=== PATIENT | male | born 1960 | race Caucasian/White ===

== ENCOUNTER 2018-08-05 09:03 | Outpatient (REF) | payer MEDICAID, SELFPAY ==
[2018-08-05 19:33] LABS: Anion Gap 8.6 mmol/L (3-11); BUN 16 mg/dL (7-18); CO2 27.4 mmol/L (21.0-32.0); CREATININE 0.92 mg/dL (0.70-1.30); Chloride 102 mmol/L (98-107); Glucose 204 mg/dL (70-100); Potassium 4.4 mmol/L (3.5-5.1); Sodium 138 mmol/L (136-145)
== END 2018-08-05 09:23 ==
LOC: NCHCN 09:03
PROVIDERS: PCP Physician Assistant Medical; Visit Provider Physician Assistant Medical
DX: E11.9 Type 2 diabetes mellitus without complications (principal); I10 Essential (primary) hypertension
CPT/HCPCS: 80048

== ENCOUNTER 2018-11-18 07:17 | Day surgery (SDC) | payer MEDICAID, SELFPAY ==
--- NOTE | 2018-11-18 06:26 | HPE_ITS ---
Date of service: 11/18/18 Assessment and Plan (1) Encounter for screening colonoscopy: Current visit: No Status: Acute A\\ Colon Cancer screening. His last colonoscopy 10 years ago was normal. P\\ Colonoscopy under sedation Risks, benefits and complications have been reviewed. Complications include but are not limited to bleeding, pain, perforation, missed small lesion/polyp, sore throat, aspiration and adverse reaction to the medications. Questions were entertained and answered to their satisfaction and they wished to proceed. No guarantees were given or implied. History of Present Illness Narrative: Mr. Conway is a pleasant 58-year-old male who was seen in the office for another colonoscopy. He had a screening colonoscopy approximately 10 years ago which was normal. He does have a family history of colon cancer, but not in a first-degree relative. He denies any changes in bowel habits, weight loss, abdominal pain, melena or hematochezia. Patient has a past medical history significant for type 2 diabetes. His last hemoglobin A1c was 7.5. He also has hypertension for which she was recently started on lisinopril. He denies any chest pain or palpitations. He is able to walk up a couple of flights of stairs without difficulty. He does not have a history of MIs or strokes. He is a former smoker. He has a 51-[id number]-[id number] history. He stopped smoking in 1991. He drinks 1-2 beers a night. he is here for his colonoscopy today. He has had no changes in his medical history since he was seen in the office. Review of Systems Cardiovascular Reports chest pain, Reports chest pain at rest, Reports dyspnea and Reports dyspnea on exertion Respiratory Reports dyspnea and Reports dyspnea on exertion Gastrointestinal Reports as per [facility] Medical History Hypertension (Chronic) Type 2 diabetes mellitus (Chronic) Surgical History S/P cataract extraction (Acute ~1996) S/P colonoscopy (Acute) 2008-normal S/P tonsillectomy (Acute ~1963) S/P vasectomy (Acute ~1994) Family History Other Colon cancer Social History Smoking/Tobacco Use Status: Former Tobacco Use Quit Date: 03/25/95 Alcohol Intake: current Alcohol Intake frequency: a few times a week Alcohol type: beer Drug use: Never Household members: spouse Housing: house Do you feel safe at home: Yes Do you feel safe in your relationship?: Yes Meds Home Medications Medication Instructions Recorded Confirmed Type atorvastatin 20 mg tablet 20 mg PO QHS 09/02/18 11/13/18 History glipizide 5 mg tablet, extended 5 mg PO DAILY 09/02/18 11/13/18 History release 24 hr lisinopril 5 mg tablet 5 mg PO DAILY 09/02/18 11/13/18 History sildenafil 50 mg tablet 50 mg PO DAILY PRN 09/02/18 11/13/18 History bisacodyl 5 mg tablet,delayed 5 mg PO ONCE #4 tab 09/23/18 09/23/18 Rx release polyethylene glycol 3350 17 gram 255 g PO DAILY #15 each 09/23/18 09/23/18 Rx oral powder packet Allergies Allergy/AdvReac Type Severity Reaction Status Date / Time No Known Allergies Allergy Verified 09/23/18 14:09 Exam [facility] Head: normocephalic and atraumatic Resp Effort & Inspection: normal respiratory effort Auscultation: clear to auscultation bilaterally Cardio Rate: regular rate Rhythm: regular rhythm
--- NOTE | 2018-11-18 06:42 | W.COLOREPORT ---
Date of service: 11/18/18 Time of Service: : Colonoscopy Report Date of procedure: 11/18/18 Pre-op diagnosis general: Colon Cancer Screening Post-op diagnosis procedure note: other (polyps, diverticulosis) Procedure: Colonoscopy with polypectomy with cold forceps Surgeon: iBa Ramirez Anesthesia proc note operative: other (General/ ASA 2/Campbell Bonilla, ALICE) Estimated blood loss (mL): 3 Pathology: other (sigmoid bx at 30 cm, rectal polyp) Complications: None Disposition: same day Indications: Mr. Conway is a pleasant 58 year old male seen in the office for a follow up colonoscopy. His last colonoscopy was 10 years ago and was normal. Risks, benefits and complications have been reviewed. Complications include but are not limited to bleeding, pain, perforation, missed small lesion/polyp, sore throat, aspiration and adverse reaction to the medications. Questions were entertained and answered to their satisfaction and they wished to proceed. No guarantees were given or implied. Prep: Miralax/Dulcolax Procedure Start Time: : Procedure End Time: : Retraction Time: 25 minutes Findings: One rectal polyp Diverticulosis of the sigmoid colon ? lesion vs prolapsed mucosa at 30 cm- biopsies done Procedure Description: After informed consent was obtained the patient was taken to the procedure room and placed in a left decubitous position. Monitors were applied and a time out was done. The patients name, date of , procedure, allergies to medications and metal in their body was reviewed. The patient was then sedated. Once sedated and comfortable a rectal exam was done. External exam was normal. Internal exam revealed a normal sphincter tone and no palpable masses. The prostate smooth. The scope was then introduced and retro-flexed. No internal hemorrhoids were identified. The scope was then advanced to the cecum without difficulty. The TI and appendiceal orifice were identified. The prep was good. The scope was then slowly retracted over 25 minutes back into the rectum. Polyps were removed with cold forceps in the rectum. There was an area at 30 cm that was red and thickened but it didn't look like a polyp. The area was biopsied. The scope was removed and the patient was woken up and taken back to Same day surgery in stable condition. The patient tolerated the procedure well and there were no immediate complications. Follow up: The patient should follow up in 3-5 years unless they develop changes in bowel habits or other new gastrointestinal complaints.
--- NOTE | 2018-11-18 06:44 | W.PM.DSUDISC ---
Discharge Plan Disposition Patient Disposition: HOME Condition: Good Discharge Details Reason For Visit: Colon Cancer Screening Attending Provider: Bia Ramirez Primary Care Provider: Jovanny Hermosillo V Home Meds and New Rx's Prescriptions: Continued atorvastatin [Lipitor] 20 mg tablet 20 mg PO QHS RF: 0 glipizide 5 mg tablet extended release 24hr 5 mg PO DAILY RF: 0 sildenafil [Viagra] 50 mg tablet 50 mg PO DAILY PRNRF: 0 lisinopril 5 mg tablet 5 mg PO DAILY RF: 0 Discontinued bisacodyl [Dulcolax (bisacodyl)] 5 mg tablet,delayed release (DR/EC) 5 mg PO ONCE Qty: 4 RF: 0 polyethylene glycol 3350 17 gram powder in packet 255 g PO DAILY Qty: 15 RF: 0 Discharge Instructions Instructions: Colonoscopy (GEN), Diverticulosis (ED), Colorectal Polyps (GEN) Additional Instructions: Findings: 1 polyp Diverticulosis ? polyp vs inflammation. Biopsy done Follow up: depends on final pathology Please call if you develop: fevers >101.5 Nausea or Vomiting Abdominal pain that is not transient DAY SURGERY UNIT POST ENDOSCOPY INSTRUCTIONS 1. Because there will be medication in your system for the next 24 hours, you may feel a little sleepy. Your coordination will be affected. Therefore: a. Do not drive or operate dangerous equipment for 24 hours. b. Do not drink alcohol beverages for 24 hours (not even beer). c. Plan to go home and rest for the day. 2. Generally there are no restrictions on your activity after a day or so has gone by, but you may feel a bit fatigued for a few days. 3 After you arrive home you may have a light meal and return to a normal diet as you can tolerate it without feeling sick to your stomach. 4. After surgery, you may feel pain or discomfort. This should be only transient, but if it persists please contact your doctor. 5. If there are any questions regarding the findings of your procedure, please feel free to contact your doctor. 6. If you are unable to contact your doctor with a problem, contact the hospital at [phone]. 7. Continue all your regular medications unless directed otherwise. I understand the above instructions and have no questions. Signature of Patient or Responsible Adult Escort Date/Time Name of Responsible Adult Escort Signature of Nurse Date/Time Activity:: Activity as Tolerated Diet:: HIGH fIBER DIET Discharge Orders Discharge Orders: Discharge Order (Routine); Ordered 11/18/18 Ordered By: Bia Ramirez DS: Diagnosis Discharge Diagnosis (1) Encounter for screening colonoscopy: Status: Resolved (2) Colorectal polyp detected on colonoscopy: (3) Diverticulosis:
[2018-11-18 07:44] VITALS: BP 140/93; PULSE 78; RESP 18; TEMP 36.5; O2SAT 95
[2018-11-18] MEDS: Lactated Ringers 1,000 ML 80 ML IV (07:59)
--- NOTE | 2018-11-18 08:40 | BOWEL_PTH ---
PATIENT: Shaun Conway LOC: [facility] U#:[id number] AGE/SX: 58/M ROOM: RE11/18/[address]: Bia Ramirez MD : 1960 BED: DIS: 11/18/2018 SPEC #: [id number] RECD: 11/18/18 12:46 STATUS: JERMAINE REQ #: [id number] KANIKA: 11/18/18 08:[address]: Bia Ramirez DEPT: Surgical Specimen RECD BY: Florencia Barclay ENTERED: 11/18/18 12:47 SP TYPE: Bowel OTHR DR: Jovanny Hermosillo V Tissues: 1 - BIOPSY BOWEL 2 - BIOPSY BOWEL Procedures: GROSS AND MICRO LEVEL 4 Comments: [id number]
[2018-11-18 09:31] VITALS: BP 154/92; PULSE 74; RESP 16; TEMP 36.5; O2SAT 94
== END 2018-11-18 10:00 | disposition home or self-care (01) ==
LOC: SUR 07:17
PROVIDERS: PCP Physician Assistant Medical; Visit Provider Surgery
PROC: 0DJD8ZZ Inspection of Lower Intestinal Tract, Via Natural or Artificial Opening Endoscopic (ICD-10-PCS; CPT 45378; principal; 2018-11-18 08:15)
DX: Z12.11 Encounter for screening for malignant neoplasm of colon (principal); Z80.0 Family history of malignant neoplasm of digestive organs; K63.5 Polyp of colon; K62.1 Rectal polyp; E11.9 Type 2 diabetes mellitus without complications; I10 Essential (primary) hypertension; Z87.891 Personal history of nicotine dependence
CPT/HCPCS: 45380; 88305; NC; J2250; J3010

== ENCOUNTER 2019-12-15 10:25 | Outpatient (REF) | payer MEDICAID, SELFPAY ==
[2019-12-15 20:31] LABS: Abs Immature Grans 0.01 10^3/uL (0.0-0.06); Absolute Basophil Count 0.05 10^3/uL (0.0-0.2); Absolute Eosinophil Count 0.18 10^3/uL (0.0-0.7); Absolute Lymphocyte Count 2.02 10^3/uL (1.2-3.4); Absolute Monocyte Count 0.41 10^3/uL (0.1-0.8); Absolute Neutrophil Count 3.31 10^3/uL (1.2-6.7); Basophils % 0.8; HCT 49.7 % (40.0-50.0); Immature Grans % 0.2; Lymphocytes % 33.8; MCH 28.4 pg (27.0-33.0); MCHC 32.2 % (32.0-36.0); MCV 88.3 fL (80-95); MPV 11.3 fL (8.0-11.0); Monocytes % 6.9; Neutrophils % 55.3; Nucleated RBC 0 %; Platelet Count 243 10^3/uL (130-400); RBC 5.63 10^6/uL (4.36-5.78); RDW 12.8 % (11.8-14.1); RDW-SD 41.1 fL; WBC 5.98 10^3/uL (4.4-10.8)
[2019-12-15 20:52] LABS: ALT 49 U/L (16-63); AST 22 U/L (15-37); Albumin 3.9 g/dL (3.4-5.0); Alkaline Phosphatase 83 U/L (46-116); Anion Gap 6.4 mmol/L (3-11); BUN 15 mg/dL (7-18); Bilirubin, Total 0.9 mg/dL (0.2-1.0); CO2 32.6 mmol/L (21.0-32.0); CREATININE 0.85 mg/dL (0.70-1.30); Calcium 9.4 mg/dL (8.5-10.1); Calculated LDL 70 mg/dL (<100); Chloride 103 mmol/L (98-107); Cholesterol 143 mg/dL (<200); Glucose 138 mg/dL (74-106); HDL Cholesterol 62 mg/dL (40-60); Potassium 4.7 mmol/L (3.5-5.1); Sodium 142 mmol/L (136-145); Total Protein 7.4 g/dL (6.4-8.2); Triglyceride 57 mg/dL (<150)
[2019-12-15 20:54] LABS: COMMENT (LAB VIEW ONLY) 165.11 mg/dL; Microalb ug/mg Crea 6.2 ug/mg Cr
== END 2019-12-15 10:45 ==
LOC: NCHCN 10:25
PROVIDERS: PCP Physician Assistant Medical; Visit Provider Physician Assistant
DX: I10 Essential (primary) hypertension (principal); E11.9 Type 2 diabetes mellitus without complications
CPT/HCPCS: 80053; 80061; 82043; 82570; 85025

== ENCOUNTER 2020-07-12 02:03 | Outpatient (CLI) | payer MEDICAID, SELFPAY ==
[2020-07-12 08:44] VITALS: BP 137/76; PULSE 81; RESP 14; TEMP 37.4; O2SAT 94
[2020-07-12] MEDS: Normal Saline Flush 10 ML SYR IVP (09:32)
[2020-07-12] MEDS: Normal Saline 500 ML 30 ML IV (09:32)
[2020-07-12 09:42] VITALS: BP 138/75; PULSE 73; RESP 18; TEMP 36.8; O2SAT 93
[2020-07-12 10:18] VITALS: BP 121/73; PULSE 76; RESP 18; TEMP 36.6; O2SAT 91
[2020-07-12 10:50] VITALS: BP 127/76; PULSE 70; RESP 22; TEMP 36.8; O2SAT 93
[2020-07-12 11:12] VITALS: BP 125/72; PULSE 68; RESP 18; TEMP 36.6; O2SAT 92
== END 2020-07-12 02:04 | disposition home or self-care (01) ==
LOC: INF 02:04
PROVIDERS: PCP Physician Assistant Medical; Visit Provider Family Medicine
DX: U07.1 COVID-19 (principal)
CPT/HCPCS: 96365

== ENCOUNTER 2021-01-20 18:42 | Outpatient (REF) | payer MEDICAID, SELFPAY ==
[2021-01-20 18:56] LABS: Anion Gap 6.6 mmol/L (3-11); BUN 17 mg/dL (7-18); CO2 30.4 mmol/L (21.0-32.0); CREATININE 0.8 mg/dL (0.70-1.30); Calcium 9.4 mg/dL (8.5-10.1); Chloride 104 mmol/L (98-107); Glucose 99 mg/dL (74-106); Potassium 4.9 mmol/L (3.5-5.1); Sodium 141 mmol/L (136-145)
[2021-01-20 19:32] LABS: COMMENT (LAB VIEW ONLY) 128.19 mg/dL; Microalb ug/mg Crea 3.8 ug/mg Cr
== END 2021-01-20 18:43 | disposition home or self-care (01) ==
LOC: NCHCN 18:42
PROVIDERS: PCP Physician Assistant Medical; Visit Provider Physician Assistant
DX: E11.9 Type 2 diabetes mellitus without complications (principal)
CPT/HCPCS: 80048; 82043; 82570

== ENCOUNTER 2021-12-14 21:33 | Outpatient (REF) | payer SELFPAY ==
[2021-12-14 20:39] LABS: ALT 56 U/L (16-63); AST 31 U/L (15-37); Albumin 3.4 g/dL (3.4-5.0); Alkaline Phosphatase 72 U/L (46-116); Anion Gap 7.8 mmol/L (3-11); BUN 21 mg/dL (7-18); Bilirubin, Total 0.6 mg/dL (0.2-1.0); CO2 27.2 mmol/L (21.0-32.0); Calcium 9.2 mg/dL (8.5-10.1); Chloride 103 mmol/L (98-107); Estimated GFR 84.57 (mL/min/1.73m2); Glucose 171 mg/dL (74-106); Potassium 4.1 mmol/L (3.5-5.1); Sodium 138 mmol/L (136-145); Total Protein 7.4 g/dL (6.4-8.2)
== END 2021-12-14 21:34 | disposition home or self-care (01) ==
LOC: NCHCN 21:33
PROVIDERS: PCP Physician Assistant Medical; Visit Provider Physician Assistant
DX: E11.9 Type 2 diabetes mellitus without complications (principal); I10 Essential (primary) hypertension
CPT/HCPCS: 80053

== ENCOUNTER 2022-12-06 16:55 | Outpatient (REF) | payer BC, SELFPAY ==
[2022-12-06 19:19] LABS: ALT 38 U/L (16-63); AST 24 U/L (15-37); Albumin 3.6 g/dL (3.4-5.0); Alkaline Phosphatase 80 U/L (46-116); Anion Gap 4.9 mmol/L (3-11); BUN 17 mg/dL (7-18); Bilirubin, Total 0.8 mg/dL (0.2-1.0); CO2 30.1 mmol/L (21.0-32.0); CREATININE 0.9 mg/dL (0.70-1.30); Calcium 9.2 mg/dL (8.5-10.1); Chloride 104 mmol/L (98-107); Estimated GFR 95.37 (mL/min/1.73m2); Glucose 134 mg/dL (74-106); Potassium 4.2 mmol/L (3.5-5.1); Sodium 139 mmol/L (136-145); Total Protein 7.5 g/dL (6.4-8.2)
== END 2022-12-06 16:56 | disposition home or self-care (01) ==
LOC: NCHCN 16:55
PROVIDERS: PCP Physician Assistant Medical; Visit Provider Physician Assistant
DX: I10 Essential (primary) hypertension (principal); E11.9 Type 2 diabetes mellitus without complications
CPT/HCPCS: 80053

== ENCOUNTER 2023-04-23 10:26 | Outpatient (REF) | payer BC, SELFPAY ==
[2023-04-23 20:03] LABS: COMMENT (LAB VIEW ONLY) 55.94 mg/dL; Microalb ug/mg Crea 8.8 ug/mg Cr
== END 2023-04-23 10:27 | disposition home or self-care (01) ==
LOC: NCHCN 10:26
PROVIDERS: PCP Physician Assistant Medical; Visit Provider Physician Assistant
DX: E11.9 Type 2 diabetes mellitus without complications (principal)
CPT/HCPCS: 82043; 82570

== ENCOUNTER 2023-12-12 12:21 | Outpatient (REF) | payer BC, SELFPAY ==
[2023-12-12 22:50] LABS: ALT 51 U/L (16-63); AST 27 U/L (15-37); Albumin 3.8 g/dL (3.4-5.0); Alkaline Phosphatase 82 U/L (46-116); Anion Gap 10.3 mmol/L (3-11); BUN 15 mg/dL (7-18); Bilirubin, Total 0.97 mg/dL (0.2-1.0); CO2 28.7 mmol/L (21.0-32.0); CREATININE 0.9 mg/dL (0.70-1.30); Calcium 10.1 mg/dL (8.5-10.1); Calculated LDL 72 mg/dL (<100); Chloride 102 mmol/L (98-107); Cholesterol 152 mg/dL (<200); Estimated GFR 94.78 (mL/min/1.73m2); Glucose 136 mg/dL (74-106); HDL Cholesterol 67 mg/dL (40-60); Potassium 4.3 mmol/L (3.5-5.1); Sodium 141 mmol/L (136-145); Total Protein 7.6 g/dL (6.4-8.2); Triglyceride 65 mg/dL (<150)
[2023-12-14 08:57] LABS: HIV-1/2 Ag & Ab Screen Negative (Negative)
[2023-12-16 10:09] LABS: Hepatitis C Ab w Rflx HCV PCR Negative (Negative)
== END 2023-12-12 12:22 | disposition home or self-care (01) ==
LOC: NCHCN 12:21
PROVIDERS: PCP Physician Assistant Medical; Visit Provider Physician Assistant
DX: Z11.59 Encounter for screening for other viral diseases (principal); E11.9 Type 2 diabetes mellitus without complications; Z11.4 Encounter for screening for human immunodeficiency virus [HIV]
CPT/HCPCS: 80053; 80061; 86803; 87389

== ENCOUNTER 2024-07-02 12:03 | Outpatient (REF) | payer BC, SELFPAY ==
[2024-07-02 19:58] LABS: COMMENT (LAB VIEW ONLY) 62.46 mg/dL; Microalb ug/mg Crea 5.3 ug/mg Cr
== END 2024-07-02 12:04 | disposition home or self-care (01) ==
LOC: NCHCN 12:03
PROVIDERS: PCP Physician Assistant; Visit Provider Physician Assistant
DX: E11.9 Type 2 diabetes mellitus without complications (principal)
CPT/HCPCS: 82043; 82570

== ENCOUNTER 2024-08-28 08:28 | Day surgery (SDC) | payer BC, SELFPAY ==
--- NOTE | 2024-08-27 16:34 | W.PM.DSUDISC ---
Date of service: 08/28/24 Discharge Plan Disposition Patient Disposition: Home Condition: Good Discharge Details Reason For Visit: Screening colonoscopy Attending Provider: Olvin Saravia Primary Care Provider: Ivory Patterson Home Meds and New Rx's Prescriptions: Continued atorvastatin [Lipitor] 20 mg tablet 20 mg PO QHS glipizide 5 mg tablet extended release 24hr 5 mg PO DAILY sildenafil [Viagra] 50 mg tablet 50 mg PO DAILY PRN lisinopril 5 mg tablet 2.5 mg PO DAILY Discontinued polyethylene glycol 3350 17 gram/dose powder 238 g PO ONCE Qty: 238 0RF Rx Instructions: take per colonoscopy instructions bisacodyl [Dulcolax (bisacodyl)] 5 mg tablet,delayed release (DR/EC) 5 mg PO ONCE Qty: 4 0RF Rx Instructions: take per colonoscopy instructions Discharge Instructions Instructions: Colon polyps, Diverticulosis Additional Instructions: João, it was nice meeting you today, and I hope you feel well after the procedure. I found 3 polyps today. Two of these were quite large, and I do not believe that they are completely resected. The third was much smaller, and I am certain that this has been completely removed. All of this will be sent off to the pathologist for the review. I am a little bit concerned about the 2 larger polyps, and I do not want to make any rash decisions until we have a tissue diagnosis from the pathologist. If it turns out that these are concerning for colon cancers, then you will need to have an operation to remove that part of your colon. If these polyps are inflammatory polyps, which would be consistent with what you had removed previously, then we have a few other options. I am sorry to tell you it is a little bit of a waiting game for the time being. The results from the pathologist will take about a week or 2 to get back, but as soon as I have that information I will call you. I did use a tattoo to alie the area of the 2 larger polyps today. You may notice a dark blue-black discoloration in your first few stools. Do not be alarmed by that. These 2 larger polyps occurred in an area of the sigmoid colon, which is also affected by diverticulosis. That might actually be the underlying cause. I will attach some basic information here about diverticulosis as well as colon and rectal polyps, and as I mentioned, soon as I have more information I will be in touch. If you need anything else in the meantime, please do not hesitate to call. 1. If tolerated, consume a soft, low fiber diet for 1-2 days. 2[address] Do not drive, drink alcohol, operate machinery, make critical decisions, or do activities that require coordination or balance for 24 hours. 3. Because air was put into your colon during the procedure, expelling air from your rectum (passing gas or farting) is normal. 4. You may not have a bowel movement for 1-3 days because of the colonoscopy prep. This is normal. 5. Go directly to the emergency room if you notice any of the following: Develop chills (warm to touch), or if you have a thermometer and your temperature is above 101 Difficulty breathing or difficultly swallowing Persistent vomiting Severe abdominal pain, other than gas cramps Severe chest pain Black, tarry stools Any bleeding ? exceeding one tablespoon 6. Call your physician if the site where your intravenous was started becomes red, swollen, painful, and warm to touch. 7. Your physician has reviewed your pre-procedure medications. Please continue to take those medications as previously ordered. You will be given specific information/education regarding any changes to your medications before leaving. Stand Alone Forms: Anesthesia Discharge Inst., Asher Pop (DSU) Activity:: Activity as Tolerated Diet:: As Tolerated Discharge Orders Discharge Orders: Discharge Order (Routine); Ordered 08/27/24 Ordered By: Olvin Saravia DS: Diagnosis Discharge Diagnosis (1) Encounter for screening colonoscopy: Status: Resolved Asessment and Plan: Follow-up on polypectomy results
--- NOTE | 2024-08-27 16:35 | W.COLOREPORT ---
Date of service: 08/28/24 Time of Service: 11:46 Colonoscopy Report Date of procedure: 08/28/24 Pre-op diagnosis general: Screening colonoscopy Post-op diagnosis procedure note: other (Colon polyps, diverticulosis) Procedure: Colonoscopy with polypectomy and biopsies Surgeon: Olvin Saravia Anesthesia Type: General:No Airway Estimated blood loss (mL): 10 Pathology: other (Greater than 1 cm sigmoid polyp at 20 cm, greater than 1 cm sigmoid polyp at 30 cm, 0.25 cm flat polyp at 40 cm) Complications: None Disposition: same day Indications: Shaun is a 64-year-old male with a family history of colon cancer who needs his next screening colonoscopy Prep: Miralax/Dulcolax Procedure Start Time: 11:00 Procedure End Time: 11:31 Retraction Time: 15 Findings: Large inflamed pedunculated polyps at 20 cm and 30 cm, 0.25 cm flat polyp at 40 cm, sigmoid diverticulosis Procedure Description: After the induction of anesthesia, and with João in left lateral decubitus position, I began by performing an external anorectal exam.? Perineum and skin were normal, as was the anal verge.? There was no evidence of external hemorrhoids.? Next, I performed a digital rectal exam.? I did not appreciate any abnormal findings.? Next, I advanced a colonoscope into the rectal vault.? I performed retroflexion.? This appeared normal.? Using insufflation, I then advanced the colonoscope beyond the rectal folds and into the sigmoid colon. Just above the rectal vault, approximately 20 cm from the anal verge was a large pedunculated polyp. It was quite inflamed. I was able to performed energize snare polypectomy for an adequate tissue sample, but all of the inflamed tissue is incompletely resected at the base, as this was quite mobile, and I was not able to find a safe target for mucosal resection. Similarly, another large inflamed pedunculated polyp was found around 30 cm from the anal verge. This also had a thickened inflamed stalk. Again, energize snare polypectomy was used, but similar to the first polyp, clear identification of the bases challenging, and I am concerned that this is incompletely resected. After that, I continued advancing towards the right side.? The scope was noted to be in the cecum by identification of the ileocecal valve and appendiceal orifice.? I then began withdrawing the colonoscope using repeated irrigation as necessary for full evaluation of the colonic mucosa. Around 45 cm from the anal verge begins an area of sigmoid diverticulosis. A 0.25 cm flat polyp is found around 40 cm from the anal verge. This was removed with cold forcep polypectomy. Resection here is complete. As it came down through the sigmoid segment, the base of the 2 other polyps was marked with a colonoscopic tattoo. 2.5 mL of ink was instilled into the base of each lesion. Once the scope was withdrawn to the level of the rectum, great care was taken to examine portions of the rectal folds.? Finally, the scope was withdrawn and the patient was brought to the same-day surgery recovery unit as the anesthetic wore off. ?The findings and instructions were shared with the patient prior to discharge. [place] Bowel Prep [place] Bowel Prep Right Colon: 3 Left Colon: 3 Transverse Colon: 3 Total Score: 9
--- NOTE | 2024-08-28 07:52 | W.ANESPRE ---
General Info Date of Service Date Performed: 08/28/24 Height: 6 ft Weight: 116.233 kg Body Mass Index (BMI): 34.7 Surgical Procedure: Operation Date: 08/28/24 09:50 Proposed Procedure Side Surgeon p Colonoscopy Olvin Saravia MD Meds Allergies and Home Medications Allergies Allergy/AdvReac Type Severity Reaction Status Date / Time No Known Allergies Allergy Verified 08/28/24 08:46 Home Medication ?Medication ?Instructions ?Recorded atorvastatin 20 mg tablet (Lipitor) 20 mg PO QHS 09/02/18 glipizide 5 mg tablet, extended 5 mg PO DAILY 09/02/18 release 24 hr sildenafil 50 mg tablet (Viagra) 50 mg PO DAILY PRN 09/02/18 lisinopril 5 mg tablet 2.5 mg PO DAILY 04/15/24 Current Visit Medications: Current Medications Generic Name Dose Route Start Last Admin Trade Name Freq PRN Reason Stop Dose Admin Ringer's Solution 1,000 mls @ 80 mls/hr 08/28/24 06:00 IV 08/28/24 23:59 INF[facility]ION [facility] IV Miscellaneous Supplies 1 each 08/28/24 06:00 Iv Access IV 08/28/24 23:59 DIRECTED HUNTER Ondansetron HCl 4 mg 08/27/24 16:36 Ondansetron 4 Mg/2 Ml Vial IVP 09/26/24 16:35 Q4H PRN PRN Nausea / Vomiting Sodium Chloride 0 ml 08/28/24 06:00 Normal Saline Flush 10 Ml Syr IV 08/28/24 23:59 PRN PRN Sodium Chloride 0 ml 08/28/24 06:00 Normal Saline 10 Ml Vial IJ 08/28/24 23:59 DIRECTED PRN Sterile Water 0 ml 08/28/24 06:00 Water,Injection,Sterile 10 Ml Vial IJ 08/28/24 23:59 DIRECTED PRN PFSH Medical History Medical History Family history of colon cancer in father Diverticulosis Colorectal polyp detected on colonoscopy Hypertension Type 2 diabetes mellitus Surgical History Surgical History S/P vasectomy (~1994) S/P cataract extraction (~1996) S/P tonsillectomy (~1963) S/P colonoscopy (~11/18/18) 2019-hyperplastic polyps 2009-normal Tobacco Smoking/Tobacco Use Status: Former Tobacco Use Passive smoking exposure: No Alcohol Alcohol Intake: current Alcohol intake frequency: a few times a week Alcohol type: beer Substance Use Substance use: Never Substance use type: does not use Vital Signs and Lab Results Vital Signs Most Recent Vital Signs in EMR: Temp Pulse Resp BP Pulse Ox 36.6 C 71 16 127/75 98 08/28/24 09:15 08/28/24 09:15 08/28/24 09:15 08/28/24 09:15 08/28/24 09:15 Lab Results Blood Type / Crossmatch: No Data to Display Complete Blood Count: No Data to Display Complete Metabolic Panel: No Data to Display Liver Function Panel: No Data to Display Coagulation Panel: No Data to Display Cardiac Panel: No Data to Display Arterial Blood Gas: No Data to Display Venous Blood Gas: No Data to Display Pancreas Panel: No Data to Display Thyroid Panel: No Data to Display Infectious Disease: No Data to Display Blood Cultures: No Data to Display Toxicology Panel: No Data to Display Anesthesia Assessment and Plan Anesthesia History Personal History: No History of Anesthesia Complications Family History: No Family History of Anesthesia Complications Exercise Tolerance Exercise Tolerance: Metabolic Equivalents>4 Cardiac & Pulmonary Exam Cardiac Exam: Normal S1/S2 Heart Sounds Pulmonary Exam: Clear Bilateral Breath Sounds Implantable Cardiac Device Does patient have a Pacemaker or an ICD?: No Airway Exam Known Difficult Airway: No Mallampati Class: 3 Mouth Opening: Normal (> 3cm) Thyromental Distance: Greater than 3 cm Neck Range of Motion: Limited ROM Neck Circumference: Normal Teeth Condition: Normal Dentition ASA Classification ASA Score: ASA 2 Emergency Case?: No NPO Status NPO Status: NPO Clears >2 hours, Solids >8 hours Anesthesia Plan Resuscitation Status: Full Code Anesthesia Technique: General Anesthesia Airway Planned: Natural Airway Monitors Used: Standard Monitors Preoperative Comments:: 64 yo male with NKDA for colo. Sig PMHx: HTN (lisinopril), DM2 (glipizide), former smoker (1992), occ EtOH. Previous Anes: - colo, fent/midaz, prop, natural airway, no issues.
[2024-08-28] MEDS: Lactated Ringers 1,000 ML 80 ML IV (09:11)
[2024-08-28 09:15] VITALS: BP 127/75; PULSE 71; RESP 16; TEMP 36.6; O2SAT 98
[2024-08-28 09:24] VITALS: BMI 34.7
--- NOTE | 2024-08-28 11:03 | BOWEL_PTH ---
PATIENT: Shaun Conway LOC: [facility] U#:[id number] AGE/SX: 64/M ROOM: RE08/28/[address]: Olvin Saravia MD : 1960 BED: DIS: 08/28/2024 SPEC #: [id number] RECD: 08/28/24 12:57 STATUS: JERMAINE REQ #: [id number] KANIKA: 08/28/24 11:[address]: Olvin Saravia DEPT: Surgical Specimen RECD BY: Florencia Barclay ENTERED: 08/28/24 12:59 SP TYPE: Bowel OTHR DR: Ivory Patterson Tissues: 1 - BIOPSY BOWEL 2 - BIOPSY BOWEL 3 - BIOPSY BOWEL Procedures: GROSS AND MICRO LEVEL 4 Comments: [id number]
[2024-08-28] MEDS: Endoscopic Tattoo 5 ML SYR IJ (11:19)
[2024-08-28 11:35] VITALS: BP 135/73; PULSE 73; RESP 16; TEMP 36.4; O2SAT 97
--- NOTE | 2024-08-28 11:59 | W.ANESPOSTOP ---
Postoperative Evaluation Date, Time and Location Date Performed: 08/28/24 Time Performed: 11:59 Patient Location: Day Surgery Unit Vital Signs Most Recent Imported Vital Signs: Most Recent Vital Signs Temp Pulse Resp BP Pulse Ox 36.4 C L 73 16 135/73 97 08/28/24 11:35 08/28/24 11:35 08/28/24 11:35 08/28/24 11:35 08/28/24 11:35 Pain Score Most Recent Pain Score: Most Recent Pain Score Pain Level 0 08/28/24 11:35 Assessment Mental Status: Awake (Alert & Oriented to Patient Baseline) Airway and Respiratory Function: Patent airway with normal (patient baseline) respiratory exam Cardiovascular Function: Hemodynamically Stable Hydration Status: Adequately Hydrated Nausea & Vomiting: No Nausea or Vomiting Pain: Pt. Denies Any Pain Peripheral Nerve Block: Patient did not receive a nerve block
[2024-08-28 12:04] VITALS: BP 114/72; PULSE 66; RESP 16; TEMP 36.5; O2SAT 97
== END 2024-08-28 12:27 | disposition home or self-care (01) ==
LOC: SUR 08:28
PROVIDERS: PCP Physician Assistant; Visit Provider Surgery
PROC: 0DJD8ZZ Inspection of Lower Intestinal Tract, Via Natural or Artificial Opening Endoscopic (ICD-10-PCS; CPT 45378; principal; 2024-08-28 09:45)
DX: Z12.11 Encounter for screening for malignant neoplasm of colon (principal); K57.30 Diverticulosis of large intestine without perforation or abscess without bleeding; D12.5 Benign neoplasm of sigmoid colon; K63.89 Other specified diseases of intestine
CPT/HCPCS: 45380; 45385; 88305; J2704